=== PATIENT | female | born 1975 | race African-American/Black ===

== ENCOUNTER 2018-02-24 19:37 | Emergency (ER) | payer BC ==
[~2018-02-24] VITALS: Ht 170.2 cm; Wt 72.6 kg
[2018-02-24 20:18] LABS: ABSOLUTE NEUTROPHILS 6.3 thou/uL (1.4-8.2); BASOPHILS 0.4 % (0.0-2.0); EOSINOPHILS 1.1 % (0.0-3.0); HEMATOCRIT 40.3 % (37.0-47.0); HEMOGLOBIN 14.1 gm/dL (12.0-15.0); LYMPHOCYTES 25.3 % (24.0-44.0); MCH 34.4 pg (26.0-34.0); MCHC 34.9 g/dL (28.0-37.0); MCV 98.6 fL (80.0-100.0); MONOCYTES 6.2 % (1.0-8.0); PLATELET COUNT 255 thou/uL (150-400); RBC 4.09 mil/uL (4.20-5.00); RDW 13.1 % (10.5-14.5); WBC 9.4 thou/uL (4.0-11.0)
[2018-02-24 20:27] LABS: CALCIUM 8.7 mg/dL (8.5-10.1); POTASSIUM 3.5 mmol/L (3.5-5.1)
[2018-02-24] MEDS ORDERED: EPIPEN0.3 MG/0.1 IM (21:04)
[2018-02-24] MEDS ORDERED: PREDNISONE 20 M20 MG PO (21:04)
[2018-02-24] MEDS ORDERED: ZYRTEC10 MG PO (21:04)
[2018-02-24 21:24] VITALS: BP 132/78
== END 2018-02-24 21:25 | disposition home or self-care (01) ==
LOC: ER 19:37
PROVIDERS: Nurse Practitioner Family
DX: T78.1XXA Other adverse food reactions, not elsewhere classified, initial encounter (principal); R20.0 Anesthesia of skin; X58.XXXA Exposure to other specified factors, initial encounter; I10 Essential (primary) hypertension; F17.210 Nicotine dependence, cigarettes, uncomplicated; Z88.5 Allergy status to narcotic agent